=== PATIENT | male | born 1970 | race Hispanic/Latino ===

== ENCOUNTER 2022-11-24 09:48 | Emergency (ER) | payer OTHER ==
--- OUTSIDE RECORDS SUMMARY | 2022-11-24 09:51 | XMS REPORT | Continuity of Care Document ---
:1970 Author Organization [facility] t Address [address] [facility]. [address] [place] [address] Care Team Providers Name Role Phone Unavailable Unavailable Unavailable Problems This patient has no known problems. Allergies, Adverse Reactions, Alerts This patient has no known allergies or adverse reactions. Medications This patient has no known medications. Procedures This patient has no known procedures. Encounters Start End Encounter Admission Attending Care Care Encounter Source Date/Time Date/Time Type Type Clinicians Facility Department ID 2019-12-11 2019-12-11 Outpatient [facility] 00:00:00 00:00:00 [facility]- 123 Results Test Description Test Time Test Comments Results Result Comments Source HEMOGLOBIN A1c 2021-11-23 20:10:36 Test Item Value Reference Range Interpretation Comme nts HEMOGLOBIN A1c (test code = 03375) 6.2 % 4.2-5.6 H CBC W/AUTO DIFF WITH [id number] 04:32:54 Test Item Value Reference Range Interpretation Comments WBC (test code = 4.4 K/UL 3.5-11.0 1001) RBC (test code = 4.75 M/UL 4.50-6.10 1002) HEMOGLOBIN (test code 14.3 G/DL 13.5-17.0 = 1003) HEMATOCRIT (test code 42.1 % 40.0-51.0 = 1004) MCV (test code = 88.6 fL 80.0-99.0 1005) MCH (test code = 30.1 PG 25.0-33.0 1006) MCHC (test code = 34.0 G/DL 31.0-36.0 1007) RDW (test code = 13.0 % 11.5-15.0 1038) NEUTROPHILS (test 43.3 % code = 1008) LYMPHOCYTES (test 47.0 % code = 1010) MONOCYTES (test code 7.0 % = 1011) EOSINOPHILS (test 1.6 % code = 1012) BASOPHILS (test code 1.1 % = 1013) IMMATURE GRANULOCYTES 0.0 % (test code = 1036) NUCLEATED RBCS (test 0.0 /100 WBC'S See_Comment [Aut omated code = 1065) message] The sy stem which generated this result transmitted reference range : 0.0. The refere nce range was not u sed to interpret th is result as normal/abnormal . PLATELET COUNT (test 294 K/UL 130-400 code = 1015) ABSOLUTE NEUTROPHILS 1.90 K/UL 1.50-7.50 (test code = 1066) ABSOLUTE LYMPHOCYTES 2.07 K/UL 1.00-4.00 (test code = 1067) ABSOLUTE MONOCYTES 0.31 K/UL 0.20-1.00 (test code = 1068) ABSOLUTE EOSINOPHILS 0.07 K/UL 0.00-0.50 (test code = 1040) ABSOLUTE BASOPHILS 0.05 K/UL 0.00-0.20 (test code = 1069) ABS IMMATURE 0.00 K/UL 0.00-0.10 GRANULOCYTES (test code = 1020) ABS NUCLEATED RBCS 0.00 K/UL 0.00-0.11 (test code = 39837) COMPREHENSIVE METABOLIC [id number] 04:15:44 Test Item Value Reference Range Interpretation Comments GLUCOSE (test code = 102 MG/DL 70-99 H 2216) BUN (test code = 15 MG/DL 6-20 2207) CREATININE (test 0.80 MG/DL 0.80-1.40 code = 2214) eGFR (2020 CKD-EPI) 108 >60 (test code = 57758) ML/MIN/1.73 CALC BUN/CREAT (test 19 RATIO 6-28 code = 2235) SODIUM (test code = 140 MEQ/L 877-781 3545) POTASSIUM (test code 4.5 MEQ/L 3.5-5.4 = 2227) CHLORIDE (test code 102 MEQ/L 95-107 = 2214) CARBON DIOXIDE (test 26 MEQ/L 19-31 code = 2206) CALCIUM (test code = 9.3 MG/DL 8.5-10.5 2208) PROTEIN, TOTAL (test 7.6 G/DL 6.1-8.3 code = 2229) ALBUMIN (test code = 4.9 G/DL 3.5-5.2 2200) CALC GLOBULIN (test 2.7 G/DL 1.9-3.7 code = 2240) CALC A/G RATIO (test 1.8 RATIO 1.0-2.6 code = 2234) BILIRUBIN, TOTAL 0.4 MG/DL See_Comment [Automated message] (test code = 2207) The syste m which generated this result transmit judith reference range : <=1.2. The refe rence range was not u sed to interpret th is result as normal/abnormal . ALKALINE PHOSPHATASE 69 U/L 40-118 (test code = 2203) AST (test code = 34 U/L 9-50 2217) ALT (test code = 47 U/L -50 2218) [id number] 03:47:51 Test Item Value Reference Range Interpretation Comments TESTOSTERONE (test 461 NG/DL 300-890 UNLESS O THERWISE code = 2830) INDICATED, ALL TESTING PERFORMED [facility], [address] DIRECTOR: HARIS SKY M.D. CLIA NUMBER [id number] CAP ACCREDITATION N O. [id number] PSA, [id number] 03:47:14 Test Item Value Reference Range Interpretation Comments PSA, TOTAL 1.07 NG/ML See_Comment NOTE: Methodol ogy is Camille (test code = Jhon Electroch emiluminescence 2606) Immunoassay tra ceable to WHO reference stand nevaeh 96/760. [Automated mess age] The system which generated this result transmitted ref erence range: <=4.00. The ref erence range was not used to int erpret this result as rosalia l/abnormal. [id number] 03:59:01 Test Item Value Reference Range Interpretation Comments TESTOSTERONE (test 468 NG/DL 300-890 UNLESS O THERWISE code = 2830) INDICATED, ALL TESTING PERFORMED [facility], [address] [place] DIRECTOR: HARIS SKY M.D. CLIA NUMBER [id number] CAP ACCREDITATION N O. [id number] FSH + LH [id number] 03:58:47 Test Item Value Reference Range Interpretation Comments FOLLICLE STIM HORMONE (test code = 3.2 IU/L 1.5-12.4 2700) LUTEINIZING HORMONE (test code = 4.2 IU/L 1.2-8.6 2776) TSH, THIRD [id number] 03:58:47 Test Item Value Reference Range Interpretation Comments TSH, THIRD GENERATION (test code 1.510 UIU/ML 0.400-4.100 = 2821) HEMOGLOBIN [id number] 05:15:50 Test Item Value Reference Range Interpretation Comments HEMOGLOBIN A1c (test code = 08926) 6.2 % 4.2-5.6 H LIPID [id number] 04:11:53 Test Item Value Reference Range Interpretation Comments CHOLESTEROL (test 184 MG/DL <200 code = 2210) TRIGLYCERIDES (test 64 MG/DL <150 code = 2232) HDL CHOLESTEROL (test 54 MG/DL >39 code = 2220) CALC LDL CHOL (test 114 MG/DL <100 H NOTE: C ALCULATED LDL code = 2237) IS BASED ON LITTLE-MCKENZIE METHOD WHICHINCLUDES ADJUSTABLE TRIGLYCERIDE:VL DL CHOLESTEROL RAT IO.THIS FACTOR VARIES B Y MEASURED TRIGLY CERIDE AND NON-HDLCHOL ESTEROL CONCENTRATIONS WITH INCREASED CALCU LATED LDL SEENIN HIGH ER TRIGLYCERIDE OR LOWER NON-HDL SPECIME NS. FOR MOREINFORMATION , SEE CLIENT ANNOUNCE MENT AT [email or web address] [email or web address] RATIO LDL/HDL 2.11 RATIO <3.55 (test code = 2238) COMPREHENSIVE METABOLIC [id number] 04:11:53 Test Item Value Reference Range Interpretation Comments GLUCOSE (test code = 89 MG/DL 70-99 2216) BUN (test code = 14 MG/DL 6-20 2207) CREATININE (test 0.75 MG/DL 0.80-1.40 L code = 2214) eGFR (2020 CKD-EPI) 111 >60 (test code = 82851) ML/MIN/1.73 CALC BUN/CREAT (test 19 RATIO 6-28 code = 2235) SODIUM (test code = 141 MEQ/L 348-195 9404) POTASSIUM (test code 4.5 MEQ/L 3.5-5.4 = 2228) CHLORIDE (test code 104 MEQ/L 95-107 = 2215) CARBON DIOXIDE (test 26 MEQ/L 19-31 code = 2206) CALCIUM (test code = 9.3 MG/DL 8.5-10.5 2208) PROTEIN, TOTAL (test 7.6 G/DL 6.1-8.3 code = 2229) ALBUMIN (test code = 4.6 G/DL 3.5-5.2 2200) CALC GLOBULIN (test 3.0 G/DL 1.9-3.7 code = 2240) CALC A/G RATIO (test 1.5 RATIO 1.0-2.6 code = 2234) BILIRUBIN, TOTAL 0.4 MG/DL See_Comment [Automated message] (test code = 2207) The syste m which generated this result transmit judith reference range : <=1.2. The refe rence range was not u sed to interpret th is result as normal/abnormal . ALKALINE PHOSPHATASE 71 U/L 40-118 (test code = 2203) AST (test code = 36 U/L 9-50 2217) ALT (test code = 58 U/L 5-50 H 2218) HEPATITIS PANEL, [id number] 04:00:14 Test Item Value Reference Range Interpretation Comments HEPATITIS A IgM (test NON-REACTIVE NON-REACTIVE code = 45101) HEPATITIS B CORE IgM NON-REACTIVE NON-REACTIVE (test code = 4644) HEPATITIS B SURF AG NON-REACTIVE NON-REACTIVE (test code = 2739) HEPATITIS C ANTIBODY NON-REACTIVE NON-REACTIVE (test code = 4675) INTERPRETATION (NOTE) Hepatitis A HEPATITIS A: (test serology shows no code = 2552) evidence of acu te hepatitis A. INTERPRETATION (NOTE) Hepatitis B HEPATITIS B: (test serology shows no code = 36494) evidence of ac isela hepatitis B and no indication of exposure to hepatitis B vir us in the previous si xto eight months. INTERPRETATION (NOTE) Hepatitis C HEPATITIS C: (test serology shows no code = 62374) evidence of ex posure to hepatitisC v irus at this time. I t can take up to 12 m onths after exposure tothe hepatitis C vir us for antibodies to become detectab le in the blood in ce rtain patients. UNLES S OTHERWISE INDIC ATED, ALL TESTING PERFORMED [facility], [place]. [address] [facility] [place] [address] [facility] DIRECTOR: HARIS SKY M.D. CLIA NUMBER [id number] [place] [id number] CBC W/AUTO DIFF WITH [id number] 03:20:55 Test Item Value Reference Range Interpretation Comments WBC (test code = 4.8 K/UL 3.5-11.0 1001) RBC (test code = 4.90 M/UL 4.50-6.10 1002) HEMOGLOBIN (test code 14.5 G/DL 13.5-17.0 = 1003) HEMATOCRIT (test code 42.8 % 40.0-51.0 = 1004) MCV (test code = 87.3 fL 80.0-99.0 1005) MCH (test code = 29.6 PG 25.0-33.0 1006) MCHC (test code = 33.9 G/DL 31.0-36.0 1007) RDW (test code = 13.3 % 11.5-15.0 1038) NEUTROPHILS (test 50.4 % code = 1008) LYMPHOCYTES (test 37.4 % code = 1010) MONOCYTES (test code 7.7 % = 1011) EOSINOPHILS (test 3.5 % code = 1012) BASOPHILS (test code 0.8 % = 1013) IMMATURE GRANYLOCYTES 0.2 % (test code = 1036) NUCLEATED RBCS (test 0.0 /100 WBC'S See_Comment [Aut omated code = 1065) message] The sy stem which generated this result transmitted reference range : 0.0. The refere nce range was not u sed to interpret th is result as normal/abnormal . PLATELET COUNT (test 285 K/UL 130-400 code = 1015) ABSOLUTE NEUTROPHILS 2.41 K/UL 1.50-7.50 (test code = 1066) ABSOLUTE LYMPHOCYTES 1.79 K/UL 1.00-4.00 (test code = 1067) ABSOLUTE MONOCYTES 0.37 K/UL 0.20-1.00 (test code = 1068) ABSOLUTE EOSINOPHILS 0.17 K/UL 0.00-0.50 (test code = 1040) ABSOLUTE BASOPHILS 0.04 K/UL 0.00-0.20 (test code = 1069) ABS IMMATURE 0.01 K/UL 0.00-0.10 GRANULOCYTES (test code = 1020) ABS NUCLEATED RBCS 0.00 K/UL 0.00-0.11 (test code = 87337)
[2022-11-24] MEDS ORDERED: TDAP (DIPHTH,PERTUSS(ACELL),TET VAC) 0.5 ML VIAL IMVAC ONE (10:38)
[2022-11-24] MEDS ORDERED: LIDOCAINE 1% MPF 30 ML VIAL ONE (10:38)
--- NOTE | 2022-11-24 10:49 | EDPHYS ---
Physician Documentation [facility] Name: Raj Salinas Age: 52 yrs Sex: Male : 1970 Arrival Date: 11/24/2022 Time: 09:48 Bed 14 Private MD: ED Physician Navya Freeman HPI: 11/24 10:41 This 52 yrs old Male presents to ER via Ambulatory with complaints of cp3 Laceration To Arm. 10:41 Patient is a 52-year-old male who presents to the ED secondary to laceration to the cp3 left hand that he sustained at work approximately 1 hour prior to arrival. 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 No concern of foreign body. Patient with normal range of motion and can range fingers without difficulty. No fever, chills, nausea, vomiting. Patient endorses the bleeding stopped spontaneously. Historical: - Allergies: 10:15 No Known Allergies; nj1 - Home Meds: 10:15 aspirin 81 mg oral tablet, delayed release (enteric coated) 1 tab daily [Active]; nj1 - Immunization history:: Adult Immunizations up to date. - Social history:: Smoking status: Patient denies any tobacco usage or history of. - Family history:: not pertinent. - Hospitalizations: : No recent hospitalization is reported. ROS: 10:41 Constitutional: Negative for fever, chills, and weight loss, Cardiovascular: Negative cp3 for chest pain, palpitations, and edema, Respiratory: Negative for shortness of breath, cough, wheezing, and pleuritic chest pain. 10:41 Skin: Positive for laceration(s). 10:41 Neuro: Negative for altered mental status, dizziness. 10:41 Psych: Positive for Negative for 10:41 Psych: cp3 10:41 Back: Negative for injury or acute deformity, decreased range of motion. cp3 10:41 MS/extremity: Positive for injury or acute deformity, pain. Exam: 10:41 Constitutional: This is a well developed, well nourished patient who is awake, alert, cp3 and in no acute distress. Head/Face: Normocephalic, atraumatic. Respiratory: Lungs have equal breath sounds bilaterally, clear to auscultation and percussion. No rales, rhonchi or wheezes noted. No increased work of breathing, no retractions or nasal flaring. Abdomen/GI: Soft, non-tender, with normal bowel sounds. No distension or tympany. No guarding or rebound. No evidence of tenderness throughout. 10:44 Musculoskeletal/extremity: 3 cm laceration to the dorsal surface of the left hand. cp3 Bleeding improved with pressure. Patient with full range of motion and pain. Pincer grasp normal. Patient with normal flexion extension. No physical signs of tendon or nerve injury cap refill normal. Vital Signs: 10:01 BP 146 / 82; Pulse 63; Resp 16; Temp 98.1; Pulse Ox 100% ; ll1 11:25 BP 134 / 77; Pulse 64; Resp 17; Pulse Ox 99% ; Pain 3/10; nj1 11:25 Pain Scale: Adult nj1 Laceration: 10:45 Wound Repair of 3cm ( 1.2in ) subcutaneous laceration to dorsum of left hand. Linear cp3 shaped.. Distal neuro/vascular/tendon intact. Anesthesia: Local anesthetic administered with 10 mls of 1% lidocaine. Wound prep: Simple cleansing, Moderate cleansing with betadine by me. Skin closed with 7 3-0 Prolene using running sutures and sterile technique. Dressed with Bacitracin, 4x4's. Patient tolerated well. MDM: 10:23 Patient medically screened. cp3 10:45 Historians other than the Patient: Friend: Patient's coworker at bedside endorses cp3 patient injured himself at work while cutting meat. Counseling: I had a detailed discussion with the patient and/or guardian regarding: For suture removal in 7 days. Response to treatment: the patient's symptoms have markedly improved after treatment. Administered Medications: 10:41 Drug: Lidocaine Infiltration (1 %) 20 ml {Note: Vial given to Dr Freeman for nj1 administration.} Volume: 20 ml; Route: Infiltration; 10:46 Drug: Boostrix Tdap IM 0.5 ml Route: IM; Site: right deltoid; nj1 11:27 Follow up: Response: No adverse reaction nj1 Disposition Summary: 11/24/22 11:42 Discharge Ordered Location: Home(11/24/22 11:42) cp3 Condition: Stable(11/24/22 11:42) cp3 Diagnosis - Laceration without foreign body of left hand(11/24/22 11:42) cp3 Forms: - Medication Reconciliation Form cp3 - Thank You Letter cp3 - Antibiotic Education cp3 - Prescription Opioid Use cp3 - Patient Portal Instructions cp3 Addendum: 11/26/2022 15:24 Addendum: data reviewed; nursing notes, agree, pmh, psh, social history. c p3 Signatures: Navya Freeman MD MD cp3 Edda Calderon RN RN 1 Tish Murguia RN RN nj1 Corrections: (The following items were deleted from the chart) 11/24 11:39 10:48 Home cp3 nj1 11:39 10:48 Stable cp3 nj1 11:39 10:48 Laceration without foreign body of left hand cp3 nj1
--- NOTE | 2022-11-24 10:49 | ER ---
Nurse's Notes [facility] Name: Raj Salinas Age: 52 yrs Sex: Male : 1970 Arrival Date: 11/24/2022 Time: 09:48 Bed 14 Private MD: Diagnosis: Laceration without foreign body of left hand Presentation: 11/24 10:01 Chief complaint: Patient states: Laceration L hand, <3 CM. No active bleeding. ll1 Coronavirus screen: Vaccine status: Patient reports receiving the 2nd dose of the covid vaccine. Client denies travel out of the [place] in the last 14 days. At this time, the client does not indicate any symptoms associated with coronavirus-19. Ebola Screen: Patient denies travel to an Ebola-affected area in the 21 days before illness onset. Complicating Factors: There are no complicating factors for this patient. Initial Sepsis Screen: Does the patient meet any 2 criteria? No. Patient's initial sepsis screen is negative. Does the patient have a suspected source of infection? Yes: Skin breakdown/wound. Risk Assessment: Do you want to hurt yourself or someone else? Patient reports no desire to harm self or others. Onset of symptoms was November 24, 2022. 10:01 Method Of Arrival: Ambulatory ll1 10:01 Acuity: KWABENA 4 ll1 Triage Assessment: 10:02 General: Appears uncomfortable, Behavior is calm, cooperative, appropriate for age. ll1 Pain: Complains of pain in left hand Quality of pain is described as aching. Derm: <3 cm laceration L hand. Injury Description: Laceration. Historical: - Allergies: 10:15 No Known Allergies; nj1 - Home Meds: 10:15 aspirin 81 mg oral tablet, delayed release (enteric coated) 1 tab daily [Active]; nj1 - Immunization history:: Adult Immunizations up to date. - Social history:: Smoking status: Patient denies any tobacco usage or history of. - Family history:: not pertinent. - Hospitalizations: : No recent hospitalization is reported. Screenin:[address] [facility] ED Fall Risk Assessment (Adult) History of falling in the last 3 months, nj1 including since admission No falls in past 3 months (0 pts) Score/Fall Risk Level 0 - 2 = Low Risk Oriented to surroundings, Maintained a safe environment, Hourly rounding (assess needs \T\ fall precautionary measures) done. Abuse screen: Denies threats or abuse. Denies injuries from another. Abuse screen: Denies threats or abuse. Denies injuries from another. Nutritional screening: No deficits noted. Tuberculosis screening: No symptoms or risk factors identified. Assessment: 10:19 General: Appears in no apparent distress. comfortable, Behavior is calm, cooperative, nj1 appropriate for age. Pain: Complains of pain in left hand. Pain: Pain currently is 3 out of 10 on a pain scale. Neuro: Level of Consciousness is awake, alert, obeys commands. Cardiovascular: Patient's skin is warm and dry. Respiratory: Airway is patent Respiratory effort is even, unlabored. Musculoskeletal:. Injury Description: Laceration sustained to left hand is clean, 2.6 to 7.5 cm long, not bleeding, was sustained 30-60 minutes ago. is bleeding a small amount. Vital Signs: 10:01 BP 146 / 82; Pulse 63; Resp 16; Temp 98.1; Pulse Ox 100% ; ll1 11:25 BP 134 / 77; Pulse 64; Resp 17; Pulse Ox 99% ; Pain 3/10; nj1 11:25 Pain Scale: Adult wi1 ED Course: 09:51 Patient arrived in ED. mr 09:52 Navya Freeman MD is Attending Physician. cp3 10:01 Arm band placed on Patient placed in an exam room, on a stretcher. ll1 10:02 Triage completed. ll1 10:14 Tish Murguia, IVANNA is Primary Nurse. nj1 10:15 Patient has correct armband on for positive identification. Bed in low position. Call wi1 light in reach. Provided Education on: tetanus vaccine, fall precautions, call light.. 10:46 Assist provider with laceration repair Set up tray. nj1 10:47 Anders Bruno MD is Referral Physician. cp3 11:26 Patient did not have IV access during this emergency room visit. nj1 11:30 Dressings: Kerlix X 1; left hand non-adherent dressing x 1 left hand. nj1 Administered Medications: 10:41 Drug: Lidocaine Infiltration (1 %) 20 ml {Note: Vial given to Dr Freeman for nj1 administration.} Volume: 20 ml; Route: Infiltration; 10:46 Drug: Boostrix Tdap IM 0.5 ml Route: IM; Site: right deltoid; nj1 11:27 Follow up: Response: No adverse reaction nj1 Medication: 10:46 Vaccine Information Statement (VIS) provided today. Questions and/or concerns nj1 addressed. VIS edition date: November 27, 2020. Outcome: 10:48 Discharge ordered by . cj 11:26 Discharged to home ambulatory. nj1 11:26 Condition: stable 11:26 Discharge instructions given to patient, Instructed on discharge instructions, follow up and referral plans. medication usage, wound care, Demonstrated understanding of instructions, follow-up care, medications, wound care, Prescriptions given X 2. 11:42 Discharge ordered by MD. cp3 11:45 Patient left the ED. nj1 Signatures: Navya Freeman MD MD cp3 Jeannie Holman Lynsay, RN RN ll1 Tish Murguia RN RN nj1
[2022-11-24 12:02] VITALS: TEMP 98.1
[2022-11-24 12:04] VITALS: BP 134/77; O2SAT 99
== END 2022-11-24 11:45 | disposition home or self-care (01) ==
LOC: ER 09:48
PROC: 0HQGXZZ Repair Left Hand Skin, External Approach (ICD-10-PCS; principal; 2022-11-24)
DX: S61.412A Laceration without foreign body of left hand, initial encounter (principal); Z23 Encounter for immunization; Z79.82 Long term (current) use of aspirin
CPT/HCPCS: 96372; 99284; 12002; J2001

== ENCOUNTER 2022-12-01 14:32 | Emergency (ER) | payer OTHER ==
--- OUTSIDE RECORDS SUMMARY | 2022-12-01 14:36 | XMS REPORT | Continuity of Care Document ---
:1970 Author Organization [facility] t Address [address] [place] [address] Care Team Providers Name Role Phone Unavailable [...] Clinicians Facility Department ID 2019-12-11 2019-12-11 Outpatient [facility] 00:00:00 00:00:00 [facility]- 123 Results Test Description Test Time Test Comments Results Result Comments Source HEMOGLOBIN A1c 2021-11-23 20:10:36 Test Item Value Reference Range Interpretation Comme nts HEMOGLOBIN A1c (test code = 94041) 6.2 % 4.2-5.6 H CBC W/AUTO DIFF WITH [id number] 04:32:54 Test Item Value Reference Range Interpretation [...] RBCS 0.00 K/UL 0.00-0.11 (test code = 73846) COMPREHENSIVE METABOLIC [id number] 04:15:44 Test Item Value Reference Range Interpretation Comments GLUCOSE (test code = 102 MG/DL 70-99 H 2216) BUN (test code = 15 MG/DL 6-20 2207) CREATININE (test 0.80 MG/DL 0.80-1.40 code = 2214) eGFR (2020 CKD-EPI) 108 >60 (test code = 06792) ML/MIN/1.73 CALC BUN/CREAT (test 19 RATIO 6-28 code = 2235) SODIUM (test code = 140 MEQ/L 723-615 9327) POTASSIUM (test code 4.5 MEQ/L 3.5-5.4 = 2227) CHLORIDE (test code 102 MEQ/L 95-107 = 2214) CARBON DIOXIDE (test 26 MEQ/L 19-31 code = 220) CALCIUM (test code = 9.3 MG/DL 8.5-10.5 2208) PROTEIN, TOTAL (test 7.6 G/DL 6.1-8.3 code = 2228) ALBUMIN (test code = 4.9 G/DL 3.5-5.2 2200) CALC GLOBULIN (test 2.7 G/DL 1.9-3.7 code = 2240) CALC A/G RATIO (test 1.8 RATIO 1.0-2.6 code = 2234) BILIRUBIN, TOTAL 0.4 MG/DL See_Comment [Automated message] (test code = 2206) The syste m which generated this result transmit judith reference range : <=1.2. The refe rence range was not u sed to interpret th is result as normal/abnormal . ALKALINE PHOSPHATASE 69 U/L 40-118 (test code = 2203) AST (test code = 34 U/L 9-50 2217) ALT (test code = 47 U/L 5-50 2218) [id number] 03:47:51 Test Item Value Reference Range Interpretation Comments TESTOSTERONE (test 461 NG/DL 300-890 UNLESS O THERWISE code = 2830) INDICATED, ALL TESTING PERFORMED [facility], [address] [place] [place] [address] DIRECTOR: HARIS SKY M.D. CLIA NUMBER [id number] CAP ACCREDITATION N O. [id number] PSA, [id number] 03:47:14 Test Item Value Reference Range Interpretation Comments PSA, TOTAL 1.07 NG/ML See_Comment NOTE: Methodol ogy is Camille (test code = Jhon Electroch emiluminescence 2606) Immunoassay tra ceable to WHO reference stand nevaeh 96/760. [Automated mess age] The system which generated this result transmitted ref erence range: <=4.00. The ref erence range was not used to int erpret this result as rosalia l/abnormal. [id number] 03:59:01 Test Item Value Reference Range Interpretation Comments TESTOSTERONE (test 468 NG/DL 300-890 UNLESS O THERWISE code = 2830) INDICATED, ALL TESTING PERFORMED [facility], [address] [address] [place] DIRECTOR: HARIS SKY M.D. CLIA NUMBER [id number] CAP ACCREDITATION N O. [id number] FSH + LH [id number] 03:58:47 Test Item Value Reference Range Interpretation Comments FOLLICLE STIM HORMONE (test code = 3.2 IU/L 1.5-12.4 2700) LUTEINIZING HORMONE (test code = 4.2 IU/L 1.2-8.6 2776) TSH, THIRD [id number] 03:58:47 Test Item Value Reference Range Interpretation Comments TSH, THIRD GENERATION (test code 1.510 UIU/ML 0.400-4.100 = 2821) HEMOGLOBIN [id number] 05:15:50 Test Item Value Reference Range Interpretation Comments HEMOGLOBIN A1c (test code = 35605) 6.2 % 4.2-5.6 H LIPID [id number] 04:11:53 Test Item Value Reference Range Interpretation [...] MOREINFORMATION , SEE CLIENT ANNOUNCE MENT AT [email or web address] RISK RATIO LDL/HDL 2.11 RATIO <3.55 (test code = 2238) COMPREHENSIVE METABOLIC [id number] 04:11:53 Test Item Value Reference Range Interpretation Comments GLUCOSE (test code = 89 MG/DL 70-99 2216) BUN (test code = 14 MG/DL 6-20 2207) CREATININE (test 0.75 MG/DL 0.80-1.40 L code = 2214) eGFR (2020 CKD-EPI) 111 >60 (test code = 10544) ML/MIN/1.73 CALC BUN/CREAT (test 19 RATIO 6-28 code = 2235) SODIUM (test code = 141 MEQ/L 044-112 9692) POTASSIUM (test code 4.5 MEQ/L 3.5-5.4 = [...] 58 U/L 5-50 H 2218) HEPATITIS PANEL, [id number] 04:00:14 Test Item Value Reference Range Interpretation Comments HEPATITIS A IgM (test NON-REACTIVE NON-REACTIVE code = 70669) HEPATITIS B CORE IgM NON-REACTIVE NON-REACTIVE (test code = 4644) HEPATITIS B SURF AG NON-REACTIVE NON-REACTIVE (test code = 2739) HEPATITIS C ANTIBODY NON-REACTIVE NON-REACTIVE (test code = 4675) INTERPRETATION (NOTE) Hepatitis A HEPATITIS A: (test serology shows no code = 2552) evidence of acu te hepatitis A. INTERPRETATION (NOTE) Hepatitis B HEPATITIS B: (test serology shows no code = 15016) evidence of ac [place] hepatitis B and no indication of exposure to hepatitis B vir us in the previous si xto eight months. INTERPRETATION (NOTE) Hepatitis C HEPATITIS C: (test serology shows no code = 48940) evidence of ex posure to hepatitisC v irus at this time. I t can take up to 12 m onths after exposure tothe hepatitis C vir us for antibodies to become detectab le in the blood in ce rtain patients. UNLES S OTHERWISE INDIC ATED, ALL TESTING PERFORMED [facility], [place]. [address] [place] [address] LABOR ATORY DIRECTOR: HARIS SKY M.D. SAMIRIA NUMBER [id number] [place]. [id number] CBC W/AUTO DIFF WITH [id number] 03:20:55 Test Item Value Reference Range Interpretation [...] RBCS 0.00 K/UL 0.00-0.11 (test code = 35786)
--- NOTE | 2022-12-01 15:08 | EDPHYS ---
Physician Documentation [facility] Name: Raj Salinas Age: 52 yrs Sex: Male : 1970 Arrival Date: 12/01/2022 Time: 14:32 Bed 11 Private MD: ED Physician Juan Foster HPI: 12/01 15:04 This 52 yrs old Male presents to ER via Ambulatory with complaints of Suture snw Removal. 15:04 The patient has sutures on the left hand. Previous treatment: The patient was initially snw treated 7 day(s) ago. Sutures/jewell progress: The patient has no c/o's. The wound is well-healing with no redness, swelling, discharge, or dehiscence reported. The patient has not recently seen a physician. Historical: - Allergies: 14:39 No Known Allergies; mb9 - Home Meds: 14:39 aspirin 81 mg Oral tablet, delayed release (enteric coated) 1 tab daily [Active]; mb9 - PMHx: 14:39 None; mb9 - PSHx: 14:39 None; mb9 - Immunization history:: Adult Immunizations up to date. - Social history:: Smoking status: Patient denies any tobacco usage or history of. ROS: 15:04 Constitutional: Negative for fever, chills, and weight loss, Eyes: Negative for injury, snw pain, redness, and discharge, ENT: Negative for injury, pain, and discharge, Neck: Negative for injury, pain, and swelling, Cardiovascular: Negative for chest pain, palpitations, and edema, Respiratory: Negative for shortness of breath, cough, wheezing, and pleuritic chest pain, Abdomen/GI: Negative for abdominal pain, nausea, vomiting, diarrhea, and constipation, Back: Negative for injury and pain, : Negative for injury, bleeding, discharge, and swelling, MS/Extremity: Negative for injury and deformity, Neuro: Negative for headache, weakness, numbness, tingling, and seizure, Psych: Negative for depression, anxiety, suicide ideation, homicidal ideation, and hallucinations. 15:04 Skin: Positive for sutured wound to left hand. Exam: 15:05 Constitutional: This is a well developed, well nourished patient who is awake, alert, snw and in no acute distress. Head/Face: Normocephalic, atraumatic. Eyes: Pupils equal round and reactive to light, extra-ocular motions intact. Lids and lashes normal. Conjunctiva and sclera are non-icteric and not injected. Cornea within normal limits. Periorbital areas with no swelling, redness, or edema. Cardiovascular: Regular rate and rhythm with a normal S1 and S2. No gallops, murmurs, or rubs. Normal PMI, no JVD. No pulse deficits. Respiratory: Lungs have equal breath sounds bilaterally, clear to auscultation and percussion. No rales, rhonchi or wheezes noted. No increased work of breathing, no retractions or nasal flaring. Abdomen/GI: Soft, non-tender, with normal bowel sounds. No distension or tympany. No guarding or rebound. No evidence of tenderness throughout. Back: No spinal tenderness. No costovertebral tenderness. Full range of motion. MS/ Extremity: Pulses equal, no cyanosis. Neurovascular intact. Full, normal range of motion. Neuro: Awake and alert, GCS 15, oriented to person, place, time, and situation. Cranial nerves II-XII grossly intact. Motor strength 5/5 in all extremities. Sensory grossly intact. Cerebellar exam normal. Normal gait. Psych: Awake, alert, with orientation to person, place and time. Behavior, mood, and affect are within normal limits. 15:05 Skin: Appearance: normal except for affected area, injury, laceration(s), left hand laceration with sutures intact, sutures removed and wound edges slightly, no bleeding. Vital Signs: 14:38 BP 130 / 88; Pulse 79; Resp 18; Temp 98.3; Pulse Ox 100% on R/A; Weight 80.74 kg; mb9 Height 5 ft. 2 in. ; Pain 0/10; 14:38 Body Mass Index 32.56 (80.74 kg, 157.48 cm) mb9 14:38 Pain Scale: Adult mb9 MDM: 14:43 Patient medically screened. snw 15:04 Data reviewed: vital signs, nurses notes. Counseling: I had a detailed discussion with snw the patient and/or guardian regarding: the historical points, exam findings, and any diagnostic results supporting the discharge/admit diagnosis, the need for outpatient follow up, for definitive care, to return to the emergency department if symptoms worsen or persist or if there are any questions or concerns that arise at home. Response to treatment: There is no appreciated change of the patient's symptoms at this time. Special discussion: Based on the history and exam findings, there is no indication for further emergent testing or inpatient evaluation. I discussed with the patient/guardian the need to see the primary care provider for further evaluation of the symptoms. 12/01 15:03 Order name: Misc. Order: steri strips with mastisol to support wound edges; Complete snw Time: 15:12 12/01 15:03 Order name: Wound Care; Complete Time: 15:12 snw 12/01 15:03 Order name: Wound dressing; Complete Time: 15:12 snw Administered Medications: No medications were administered Disposition: 16:17 Co-signature as Attending Physician, Juan Foster MD I reviewed the patient's care rn provided by the Advanced Practice Provider and agree with the diagnosis and treatment plan. Disposition Summary: 12/01/22 15:08 Discharge Ordered Location: Home snw Condition: Stable snw Diagnosis - Encounter for removal of sutures snw Followup: snw - With: Emergency Department - When: As needed - Reason: Worsening of condition Followup: snw - With: Private Physician - When: 2 - 3 days - Reason: Recheck today's complaints, Continuance of care, Re-evaluation by your physician Discharge Instructions: - Discharge Summary Sheet snw - Suture Removal, Care After snw - Wound Care, Adult snw Forms: - Medication Reconciliation Form snw - Thank You Letter snw - Antibiotic Education snw - Prescription Opioid Use snw - Patient Portal Instructions snw Signatures: Payal Dudley FNP-C PLANT FACILITIES TECHNICIAN-Csnw Juan Foster MD MD rn Breneman, Jeannie Parra RN RN mb9
--- NOTE | 2022-12-01 15:08 | ER ---
Nurse's Notes [facility] Name: Raj Salinas Age: 52 yrs Sex: Male : 1970 Arrival Date: 12/01/2022 Time: 14:32 Bed 11 Private MD: Diagnosis: Encounter for removal of sutures Presentation: 12/01 14:38 Chief complaint: Patient states: "I got stitches last and I'm here to get them mb9 removed from my left hand". Coronavirus screen: At this time, the client does not indicate any symptoms associated with coronavirus-19. Ebola Screen: No symptoms or risks identified at this time. Initial Sepsis Screen: Does the patient meet any 2 criteria? No. Patient's initial sepsis screen is negative. Does the patient have a suspected source of infection? No. Patient's initial sepsis screen is negative. Risk Assessment: Do you want to hurt yourself or someone else? Patient reports no desire to harm self or others. Onset of symptoms was December 01, 2022. 14:38 Method Of Arrival: Ambulatory 9 14:38 Acuity: KWABENA 4 mb9 Triage Assessment: 14:40 General: Appears in no apparent distress. Behavior is calm, cooperative. Pain: Denies mb9 pain. Neuro: Level of Consciousness is awake, alert, obeys commands. Cardiovascular: Patient's skin is warm and dry. Respiratory: Airway is patent Respiratory effort is even, unlabored, Respiratory pattern is regular, symmetrical. Derm: Skin is pink, warm \\T\\ dry. Musculoskeletal: Range of motion: intact in all extremities. Historical: - Allergies: 14:39 No Known Allergies; mb9 - Home Meds: 14:39 aspirin 81 mg Oral tablet, delayed release (enteric coated) 1 tab daily [Active]; mb9 - PMHx: 14:39 None; mb9 - PSHx: 14:39 None; mb9 - Immunization history:: Adult Immunizations up to date. - Social history:: Smoking status: Patient denies any tobacco usage or history of. Screenin:54 [facility] ED Fall Risk Assessment (Adult) History of falling in the last 3 months, mb9 including since admission No falls in past 3 months (0 pts) Confusion or Disorientation No (0 pts) Intoxicated or Sedated No (0 pts) Impaired Gait No (0 pts) Mobility Assist Device Used No (0 pt) Altered Elimination No (0 pt) Score/Fall Risk Level 0 - 2 = Low Risk Oriented to surroundings, Maintained a safe environment, Educated pt \\T\\ family on fall prevention, incl call for assistance when getting out of bed. Abuse screen: Denies threats or abuse. Nutritional screening: No deficits noted. Tuberculosis screening: No symptoms or risk factors identified. Assessment: 14:53 Reassessment: see triage assessment. mb9 Vital Signs: 14:38 BP 130 / 88; Pulse 79; Resp 18; Temp 98.3; Pulse Ox 100% on R/A; Weight 80.74 kg; mb9 Height 5 ft. 2 in. ; Pain 0/10; 14:38 Body Mass Index 32.56 (80.74 kg, 157.48 cm) mb9 14:38 Pain Scale: Adult mb9 ED Course: 14:34 Patient arrived in ED. im 14:36 Payal Dudley FNP-C [facility] snw 14:36 Juan Foster MD is Attending Physician. snw 14:39 Triage completed. mb9 14:39 Arm band placed on. mb9 14:53 Jeannie Cohen RN is Primary Nurse. mb9 14:55 Placed in gown. Bed in low position. Call light in reach. Side rails up X 1. Client mb9 placed on continuous cardiac and pulse oximetry monitoring. NIBP monitoring applied. transmissions systems operator on. 15:16 No provider procedures requiring assistance completed. Patient did not have IV access mb9 during this emergency room visit. Administered Medications: No medications were administered Medication: 14:54 VIS not applicable for this client. mb9 Outcome: 15:08 Discharge ordered by . snw 15:16 Discharged to home ambulatory. mb9 15:16 Condition: stable 15:16 Discharge instructions given to patient, Instructed on discharge instructions, follow up and referral plans. Demonstrated understanding of instructions, follow-up care. 15:16 Patient left the ED. mb9 Signatures: Payal Dudley FNP-C [employer]AND CLASSIFIER-Csnw Jeannie Cohen, RN RN mb9 Nereida Bai im
[2022-12-01 15:30] VITALS: BP 130/88; TEMP 98.3; O2SAT 100
== END 2022-12-01 15:16 | disposition home or self-care (01) ==
LOC: ER 14:32
DX: Z48.02 Encounter for removal of sutures (principal)
CPT/HCPCS: 99284